=== PATIENT | male | born 1985 | race Hispanic/Latino ===

== ENCOUNTER 2017-12-22 11:00 | Emergency (ER) | payer BC ==
[2017-12-22] MEDS ORDERED: MOTRIN PO ONE (13:12)
--- NOTE | 2017-12-22 15:47 | XRay Report ---
RIB RADIOGRAPHS WITH CHEST VIEW INDICATION: Right lower lateral rib pain. COMPARISON: None similar at this institution. FINDINGS: Frontal chest as also AP and oblique radiographs to evaluate right ribs, 4 projections demonstrate normal cardiomediastinal silhouette. Clear lungs without effusions, CHF or pneumothorax. Specifically, no definite or significantly displaced right rib fracture identified. CONCLUSION: No acute right rib or chest radiographic abnormality with few incidental findings, as described. Please note that some acute rib fractures may be radiographically occult. Thank you for the opportunity to participate in this patient's care.
[2017-12-22 16:24] VITALS: BP 113/76
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
== END 2017-12-22 16:54 | disposition home or self-care (01) ==
LOC: ED 11:00
DX: R07.81 Pleurodynia (principal); F17.200 Nicotine dependence, unspecified, uncomplicated
CPT/HCPCS: 99283